=== PATIENT | female | born 2000 | race Caucasian/White ===

== ENCOUNTER 2024-06-21 17:09 | Emergency (ER) | payer BC ==
[~2024-06-21] VITALS: Ht 160 cm; Wt 47.7 kg
[2024-06-21 17:21] VITALS: TEMP 98.5
[2024-06-21] MEDS ORDERED: NS 1,000 ML IV ONE (19:15)
[2024-06-21] MEDS ORDERED: Ondansetron 4 MG/2 ML VIAL IV ONE (19:15)
[2024-06-21] MEDS ORDERED: Acetaminophen 325 MG TAB PO ONE (19:45)
[2024-06-21 19:52] LABS: HEMATOCRIT 44.1 % (37.0-47.0); MEAN CELL VOLUME 94 fl (80.0-100.0); MEAN CORPUSCULAR HEMOGLOBIN 32 pg (27-31); MEAN CORPUSCULAR HGB CONC 34 g/dl (33.0-37.0); PLATELET COUNT 253 K/mm3 (130-400); REDCELL DISTRIBUTION WIDTH-CV 12.4 % (11.5-14.5)
[2024-06-21 20:06] LABS: ALBUMIN 3.6 g/dL (3.5-5.0); BILIRUBIN,TOTAL 0.9 mg/dL (0.2-1.2); CALCIUM 8.5 mg/dL (8.4-10.2); CREATININE, serum 0.79 mg/dL (0.57-1.11); POTASSIUM 3.8 mEq/L (3.5-4.5); TOTAL PROTEIN 6.5 g/dl (6.2-8.1)
[2024-06-21] MEDS ORDERED: Home Ondansetron ODT 4 MG #2 ODT/PACK PO ONE ×2 (20:30→21:45)
[2024-06-21 20:35] LABS: BAND 29 % (0-10); EOSINOPHIL 2 % (0-4); LYMPHOCYTE 8 % (20.0-51.0); NEUTROPHILS 58 % (42.0-75.2)
[2024-06-21 21:10] LABS: PH 5.5 (5.0-8.5); URINE APPEARANCE CLEAR (CLEAR/HAZY); URINE BLOOD NEGATIVE (NEGATIVE); URINE COLOR YELLOW (YELLOW); URINE GLUCOSE 3+ (NEGATIVE); URINE KETONE 1+ (NEGATIVE); URINE NITRATE NEGATIVE (NEGATIVE); URINE PROTEIN(semi-quant) NEGATIVE (NEGATIVE); URINE UROBILINOGEN 0.2 E.U/dL (0.2-1.0)
[2024-06-21 21:25] LABS: COLLECTION METHOD CLEAN CATCH
[2024-06-21 21:53] VITALS: BP 104/78; PULSE 76
== END 2024-06-21 21:53 | disposition home or self-care (01) ==
LOC: COL.ER 17:09
PROVIDERS: Physician Assistant
DX: R11.2 Nausea with vomiting, unspecified (principal); R19.7 Diarrhea, unspecified
CPT/HCPCS: J2405; J7030